=== PATIENT | male | born 1975 | race Native Hawaiian/Other Pacific Islander ===

== ENCOUNTER 2016-06-09 10:04 | Outpatient (CLI) | payer BC | END 2016-06-09 12:04 | disposition home or self-care (01) | LOC: RAD 10:04 | DX: M53.3 Sacrococcygeal disorders, not elsewhere classified (principal) ==

== ENCOUNTER 2016-07-02 08:51 | Outpatient (CLI) | payer BC | END 2016-07-02 19:06 | disposition home or self-care (01) | LOC: LABW 08:51 | DX: R71.8 Other abnormality of red blood cells (principal) | CPT/HCPCS: 36415; 85014; 85018 ==

== ENCOUNTER 2016-07-03 09:26 | Outpatient (CLI) | payer BC | END 2016-07-03 19:15 | disposition home or self-care (01) | LOC: LABW 09:26 | DX: R71.8 Other abnormality of red blood cells (principal) | CPT/HCPCS: 36415; 99195 ==

== ENCOUNTER 2016-07-11 10:13 | Outpatient (CLI) | payer BC | END 2016-07-11 11:13 | disposition home or self-care (01) | LOC: LABW 10:13 | DX: R71.8 Other abnormality of red blood cells (principal) | CPT/HCPCS: 36415; 85014; 85018; 99195 ==

== ENCOUNTER 2016-07-17 10:22 | Outpatient (CLI) | payer BC | END 2016-07-17 21:38 | disposition home or self-care (01) | LOC: LABW 10:22 | DX: R71.8 Other abnormality of red blood cells (principal) | CPT/HCPCS: 36415; 85014; 85018 ==

== ENCOUNTER 2016-08-06 14:02 | Outpatient (CLI) | payer BC ==
[2016-08-06 14:34] LABS: PLATELET COUNT 256 K/uL (142-355)
== END 2016-08-06 20:20 | disposition home or self-care (01) ==
LOC: LABW 14:02
PROVIDERS: Nurse Practitioner
DX: R71.8 Other abnormality of red blood cells (principal); E29.1 Testicular hypofunction
CPT/HCPCS: 36415; 84153; 84402; 84403; 85027

== ENCOUNTER 2017-07-15 09:30 | Outpatient (CLI) | payer BC | END 2017-07-15 22:55 | disposition home or self-care (01) | LOC: RESP 09:30 | DX: R07.89 Other chest pain (principal) ==

== ENCOUNTER 2017-09-08 10:23 | Outpatient (CLI) | payer BC ==
[2017-09-08 10:40] LABS: PLATELET COUNT 224 K/uL (142-355)
[2017-09-08 12:40] LABS: POTASSIUM 4.2 mmol/L (3.6-5.2)
== END 2017-09-08 21:56 | disposition home or self-care (01) ==
LOC: LABW 10:23
PROVIDERS: Nurse Practitioner
DX: R06.02 Shortness of breath (principal)
CPT/HCPCS: 36415; 80053; 85027; 85379; 85651; 86140